=== PATIENT | male | born 1955 | race Caucasian/White ===

== ENCOUNTER 2019-12-04 09:21 | Emergency (ER) | payer OTHER ==
[~2019-12-04] VITALS: Ht 177.8 cm; Wt 68.0 kg
[2019-12-04] MEDS ORDERED: PRED1 PO (09:30)
[2019-12-04] MEDS ORDERED: ENBREL25 MG/0.5 SQ (09:31)
[2019-12-04] MEDS ORDERED: OXYACE7.5T PO (11:39)
[2019-12-04] MEDS ORDERED: CEPH500 PO (11:39)
== END 2019-12-04 12:10 | disposition home or self-care (01) ==
LOC: ER 09:21
DX: S68.125A Partial traumatic metacarpophalangeal amputation of left ring finger, initial encounter (principal); S61.213A Laceration without foreign body of left middle finger without damage to nail, initial encounter; S61.211A Laceration without foreign body of left index finger without damage to nail, initial encounter; Z23 Encounter for immunization; F17.210 Nicotine dependence, cigarettes, uncomplicated; W27.0XXA Contact with workbench tool, initial encounter
CPT/HCPCS: 12005; 73130; 90471; 90714; 96374-59; 96375-59; 99283-25; J0690; J1170; J2405

== ENCOUNTER → 2020-02-22 | Outpatient (CLI) | payer OTHER ==
[~2020-02-22] MED LIST: CEPH500 PO; ENBREL25 MG/0.5 SQ; OXYACE7.5T PO; PRED1 PO
== END | disposition home or self-care (01) ==
LOC: LAB 17:16 → LAB SHORT 17:16
DX: S61.305A Unspecified open wound of left ring finger with damage to nail, initial encounter (principal)
CPT/HCPCS: 87070; 87205

== ENCOUNTER 2020-05-27 10:46 | Day surgery (SDC) | payer OTHER ==
[~2020-05-27] VITALS: Ht 177.8 cm; Wt 72.2 kg
[~2020-05-27 10:46] MED LIST changes: +PRED5 PO
--- NOTE | 2020-05-27 12:32 | NUR ---
05/27/20 1232 Dalila Barrett PRE SX INJECTION PER DR YISSEL Bhatti (SEE CHART). 1% XYLOCAINE 1:200,000 9CC & SODIUM BICARBONATE 1CC FOR A TOTAL OF 10CC INJECTED BY DR. DEY.
== END 2020-05-27 13:22 | disposition home or self-care (01) ==
LOC: ORSCSDS 10:46
PROVIDERS: Orthopaedic Surgery
PROC: 0HBQXZZ Excision of Finger Nail, External Approach (ICD-10-PCS; principal; 2020-05-27 12:00)
DX: M79.645 Pain in left finger(s) (principal); L60.8 Other nail disorders; Z89.022 Acquired absence of left finger(s); J44.9 Chronic obstructive pulmonary disease, unspecified; F17.210 Nicotine dependence, cigarettes, uncomplicated
CPT/HCPCS: 88305; J0690; J2250; J2704; J3010; J7120

== ENCOUNTER 2022-04-07 08:29 | Day surgery (SDC) | payer OTHER ==
[~2022-04-07] VITALS: Ht 177.8 cm; Wt 68.3 kg
== END 2022-04-07 11:00 | disposition home or self-care (01) ==
LOC: ORSCSDS 08:29
PROVIDERS: Surgery
PROC: 0DBM8ZX Excision of Descending Colon, Via Natural or Artificial Opening Endoscopic, Diagnostic (ICD-10-PCS; principal; 2022-04-07 09:45)
PROC: 0DBP8ZX Excision of Rectum, Via Natural or Artificial Opening Endoscopic, Diagnostic (ICD-10-PCS; principal; 2022-04-07 09:45)
DX: Z12.11 Encounter for screening for malignant neoplasm of colon (principal); K62.1 Rectal polyp; F17.210 Nicotine dependence, cigarettes, uncomplicated
CPT/HCPCS: 88305; J2704; J7120